=== PATIENT | male | born 1960 | race African-American/Black ===

== ENCOUNTER 2019-03-15 14:13 | Inpatient (IN) | payer OTHER ==
[2019-03-15 16:50] VITALS: BMI 23.1
--- NOTE | 2019-03-15 18:32 | HP ---
CIWA Score Nausea/Vomitin-Mild Nausea/No Vomiting Muscle Tremors: 4-Moderate,w/Arms Extend Anxiety: 3 Agitation: 2 Paroxysmal Sweats: 1-Minimal Palms Moist Orientation: 0-Oriented Tacttile Disturbances: 0-None Auditory Disturbances: 0-None Visual Disturbances: 0-None Headache: 1-Very Mild CIWA-Ar Total Score: 12 - Admission Criteria OASAS Guidelines: Admission for Medically Managed Detox: Requires at least one of the followin. CIWA greater than 12 2. Seizures within the past 24 hours 3. Delirium tremens within the past 24 hours 4. Hallucinations within the past 24 hours 5. Acute intervention needed for co occurring medical disorder 6. Acute intervention needed for co occurring psychiatric disorder 7. Severe withdrawal that cannot be handled at a lower level of care (continued vomiting, continued diarrhea, abnormal vital signs) requiring intravenous medication and/or fluids 8. Admission ROS [facility] Chief Complaint: 58 y/o M with PMH HTN, HLD, asthma, TASIA, who presents for alcohol detox. Allergies/Adverse Reactions: Allergies Allergy/AdvReac Type Severity Reaction Status Date / Time lisinopril Allergy Severe Swelling Verified 03/15/19 16:34 History of Present Illness: 58 y/o M with PMH HTN, HLD, asthma, TASIA, who presents for alcohol detox. Pt last drink was yesterday night. Had 3/4 a quart of Ming. States that he subsequently went to [facility] for detox, however since they did not have one, he was transferred to [facility] for alcohol detox. Usually drinks 1/2 bottle of ming a day. Longest sobriety 2 weeks. Never has had any legal action. Drinks alcohol because it makes him feel "happy and smooth." States that he has had a recent stressor, as his friend 2 weeks ago. Was in detox in the city 2 weeks prior for alcohol. However he started drinking soon after he left. Denies other ingestions or complaints. PMH: HTN, HLD, asthma, TASIA PsxH: denies meds: atenolol, lipitor, iron, folic acid, Mg, MTV, procardia, ranitidine, thiamine allergies: lisinopril - angioedema FH: lives at home with . used to work as a cook for kindergarten. Smokes 1 ppd x 40-50 yrs denies recreational drug use. alcohol use as above. Exam Limitations: No Limitations - Ebola screening Have you traveled outside of the country in the last 21 days: No Have you had contact with anyone from an Ebola affected area: No Do you have a fever: No - Review of Systems Constitutional: Weakness EENT: reports: Tinnitus Respiratory: reports: No Symptoms reported Cardiac: reports: No Symptoms Reported GI: reports: No Symptoms Reported : reports: No Symptoms Reported Musculoskeletal: reports: Back Pain Integumentary: reports: No Symptoms Reported Neuro: reports: Weakness Endocrine: reports: No Symptoms Reported Hematology: reports: No Symptoms Reported Psychiatric: reports: Orientated x3 Patient History - Patient Medical History Hx Anemia: Yes (on FERROUS SULFATE) Hx Asthma: Yes Hx Chronic Obstructive Pulmonary Disease (COPD): No Hx Cancer: No Hx Cardiac Disorders: No Hx Congestive Heart Failure: No Hx Hypertension: Yes (ON PROCARDIA, ATENOLOL) Hx Hypercholesterolemia: Yes (ON LIPITOR) Hx Pacemaker: No HX Cerebrovascular Accident: No Hx Seizures: No Hx Dementia: No Hx Diabetes: No Hx Gastrointestinal Disorders: No Hx Liver Disease: No Hx Genitourinary Disorders: No Hx Sexually Transmitted Disorders: No Hx Renal Disease (ESRD): No Hx Thyroid Disease: No Hx Human Immunodeficiency Virus (HIV): No (NEG IN PAST. pt does not recall year ) Hx Hepatitis C: No Hx Depression: No Hx Suicide Attempt: No Hx Bipolar Disorder: No Hx Schizophrenia: No - Patient Surgical History Past Surgical History: No Hx Neurologic Surgery: No Hx Cataract Extraction: No Hx Cardiac Surgery: No Hx Lung Surgery: No Hx Breast Surgery: No Hx Breast Biopsy: No Hx Abdominal Surgery: No Hx Appendectomy: No Hx Cholecystectomy: No Hx Genitourinary Surgery: No Hx Section: No Hx Orthopedic Surgery: No Hx Hysterectomy: No Anesthesia Reaction: No - PPD History Documented Results: Positive w/o proof PPD to be Administered?: No - Reproductive History Patient is a Female of Child Bearing Age (11 -55 yrs old): No - Smoking Cessation Smoking history: Current every day smoker Have you smoked in the past 12 months: Yes Aproximately how many cigarettes per day: 20 Hx Chewing Tobacco Use: No Initiated information on smoking cessation: Yes 'Breaking Loose' booklet given: 03/15/19 - Substance & Tx. History Hx Alcohol Use: Yes Hx Substance Use: Yes Substance Use Type: Alcohol Hx Substance Use Treatment: Yes (detox 2 weeks ago for alcohol in [facility]) - Substances abused Alcohol Substance route: Oral Frequency: Daily Amount used: 1/5 pint Age of first use: 14 Date of last use: 03/15/19 Family Disease History - Family Disease History Family History: Denies Admission Physical Exam [facility] - Vital Signs Vital Signs: Vital Signs - 24 hr 03/15/19 16:32 Temperature 99.2 F Pulse Rate 96 H Respiratory 18 Rate Blood Pressure 143/93 - Physical General Appearance: Yes: Within Normal Limits HEENTM: Yes: Within Normal Limits Respiratory: Yes: Lungs Clear, Normal Breath Sounds Neck: Yes: Supple Breast: Yes: Breast Exam Deferred Cardiology: Yes: Regular Rate, S1, S2 Abdominal: Yes: Non Tender, Soft Genitourinary: Yes: Within Normal Limits Back: Yes: Within Normal Limits Musculoskeletal: Yes: Within Normal Limits, full range of Motion Extremities: Yes: Normal Inspection Neurological: Yes: java consultant II-XII NML intact Integumentary: Yes: Within Normal Limits - Diagnostic (1) Alcohol withdrawal Current Visit: Yes Status: Acute (2) Hypertension Current Visit: Yes Status: Acute (3) Hyperlipidemia Current Visit: Yes Status: Acute (4) Asthma Current Visit: Yes Status: Acute (5) Dehydration Current Visit: Yes Status: Acute Cleared for Admission [facility] - Detox or Rehab [facility] Level of Care: Medically Supervised Detox Regimen/Protocol: Librium Breathalyzer - Breathalyzer Breathalyzer: 0 Urine Drug Screen - Test Device Lot number: [id number] Expiration date: 01/05/21 - Control Is test valid?: Yes - Results Drug screen NEGATIVE: No Urine drug screen results: MET-Methamphetamine, BZO-Benzodiazepines Inpatient Rehab Admission - Rehab Decision to Admit Inpatient rehab admission?: No
[2019-03-15] MEDS ORDERED: IBUPROFEN 400 MG TABLET (FP) PO PRN (18:38)
[2019-03-15] MEDS ORDERED: MAG HYDROX/AL HYDROX/SIMETH 30 ML UNIT-DOSE CUP PO PRN (18:38)
[2019-03-15] MEDS ORDERED: MENTHOL/PHENOL 1 EACH UD MM PRN (18:38)
[2019-03-15] MEDS ORDERED: ACETAMINOPHEN 325 MG TABLET (FP) PO PRN (18:38)
[2019-03-15] MEDS ORDERED: MAGNESIUM HYDROX 2400MG/30ML ORAL SUSPENSION 30 ML CUP PO PRN (18:38)
[2019-03-15] MEDS ORDERED: hydrOXYzine HCL 25 MG TABLET (FP) PO PRN (18:38)
[2019-03-15] MEDS: chlordiazePOXIDE HCL 25 MG CAPSULE PO PRN (20:22)
[2019-03-15] MEDS: ATENOLOL 50 MG TABLET (FP) PO SCH (20:22)
[2019-03-15] MEDS: NICOTINE POLACRILEX 2 MG GUM BUC PRN (20:39)
[2019-03-15] MEDS ORDERED: PATIENT'S OWN MEDICATION (NON-FORMULARY) (Ranitidine Hcl [Ranitidine Hcl] 300 MG) PO SCH (22:00)
[2019-03-15] MEDS: RANITIDINE HCL 150 MG TABLET (FP) PO SCH (22:09)
[2019-03-15] MEDS: ATORVASTATIN CA 20 MG TABLET (FP) PO SCH (22:09)
[2019-03-15] MEDS: chlordiazePOXIDE HCL 25 MG CAPSULE PO SCH (22:09)
[2019-03-15] MEDS: THIAMINE HCL 100 MG TABLET (FP) PO SCH (22:09)
[2019-03-15] MEDS: MELATONIN 5 MG TABLETS PO PRN (22:09)
[2019-03-16] MEDS: chlordiazePOXIDE HCL 25 MG CAPSULE PO SCH ×4 (06:02→22:04)
[2019-03-16] MEDS ORDERED: PATIENT'S OWN MEDICATION (NON-FORMULARY) (Ferrous Sulfate [Ferrous Sulfate] 325 MG) PO SCH (10:00)
[2019-03-16] MEDS ORDERED: PATIENT'S OWN MEDICATION (NON-FORMULARY) (Magnesium Oxide [Magnesium Oxide] 400 MG) PO SCH (10:00)
[2019-03-16] MEDS: NIFEdipine E.R 60 MG TABLET (UD) PO SCH (10:09)
[2019-03-16] MEDS: PRENATAL VITAMINS W/ FOLIC ACID TABLET (FP) PO SCH (10:09)
[2019-03-16] MEDS: MULTIVITAMINS (DAILY MVI) TABLET (FP) PO SCH (10:10)
[2019-03-16] MEDS: FOLIC ACID 1 MG TABLET (FP) PO SCH (10:10)
[2019-03-16] MEDS: FERROUS SO4 325 MG TABLET (FP) PO SCH (10:10)
[2019-03-16] MEDS: THIAMINE HCL 100 MG TABLET (FP) PO SCH ×2 (10:13→22:04)
--- NOTE | 2019-03-16 10:59 | PN ---
[facility] CIWA - CIWA Score Nausea/Vomitin-Mild Nausea/No Vomiting Muscle Tremors: 3 Anxiety: 2 Agitation: 2 Paroxysmal Sweats: 1-Minimal Palms Moist Orientation: 1-Uncertain about Date Tacttile Disturbances: 1-Very Mild Itch/Numbness Auditory Disturbances: 0-None Visual Disturbances: 0-None Headache: 1-Very Mild CIWA-Ar Total Score: 12 [facility] Progress Note (SOAP) Subjective: tremor tired low energy trouble in concentration headaches Objective: 03/16/19 11:00 Vital Signs Temperature 97.4 F L 03/16/19 09:18 Pulse Rate 65 03/16/19 09:18 Respiratory Rate 18 03/16/19 09:18 Blood Pressure 122/75 03/16/19 09:18 O2 Sat by Pulse Oximetry (%) 03/16/19 11:00 lab pending Assessment: 03/16/19 11:00 alcohol withdrawal sx Plan: continue alcohol detox
[2019-03-16] MEDS: MAGNESIUM OXIDE 400 MG TABLET (FP) PO SCH (11:27)
[2019-03-16] MEDS: ATENOLOL 50 MG TABLET (FP) PO SCH (11:27)
[2019-03-16 12:08] LABS: MCH 32.7 pg (25.7-33.7); MCHC 33.4 g/dl (32.0-35.9); MEAN CELL VOLUME 97.9 fl (80-96); PLATELET COUNT 146 K/MM3 (134-434); RBC 3.37 M/mm3 (4.00-5.60); WHITE BLOOD COUNT 4.3 K/mm3 (4.0-10.0)
[2019-03-16 12:52] LABS: ALBUMIN 2.6 g/dl (3.4-5.0); BILIRUBIN,TOTAL 0.8 mg/dL (0.2-1); CALCIUM 8.4 mg/dL (8.5-10.1); CREATININE 0.8 mg/dL (0.55-1.3); POTASSIUM 3.3 mmol/L (3.5-5.1); TOT PROT 5.3 g/dl (6.4-8.2)
--- NOTE | 2019-03-16 13:16 | PN ---
Teaching Attending Note Name of Resident: mAparo Baca ATTENDING PHYSICIAN STATEMENT I saw and evaluated the patient. I reviewed the resident's note and discussed the case with the resident. I agree with the resident's findings and plan as documented. SUBJECTIVE: 58 yo with h/o HTN, asthma requesting admission for alcohol detox. CIWA- 12. OBJECTIVE: Vital Signs - 24 hr 03/15/19 03/15/19 03/16/19 16:32 21:03 00:30 Temperature 99.2 F 97.9 F Pulse Rate 96 H 94 H Respiratory 18 18 18 Rate Blood Pressure 143/93 166/100 03/16/19 03/16/19 03/16/19 03:30 06:36 09:18 Temperature 98.5 F 97.4 F L Pulse Rate 71 65 Respiratory 19 18 18 Rate Blood Pressure 139/86 122/75 03/16/19 13:13 Temperature 98.1 F Pulse Rate 68 Respiratory 18 Rate Blood Pressure 163/103 H a and o X3, mild tremor ASSESSMENT AND PLAN: pt admitted for alcohol use disorder with librium.
[2019-03-16] MEDS ORDERED: POTASSIUM CHLORIDE TABS 20 MEQ TABLET.ER (FP) PO ONE (18:30)
[2019-03-16] MEDS: NICOTINE POLACRILEX 2 MG GUM BUC PRN (20:12)
[2019-03-16] MEDS: RANITIDINE HCL 150 MG TABLET (FP) PO SCH (22:04)
[2019-03-16] MEDS: POTASSIUM CHLORIDE ORAL LIQUID 20 MEQ/15 ML PO SCH (22:04)
[2019-03-16] MEDS: ATORVASTATIN CA 20 MG TABLET (FP) PO SCH (22:04)
[2019-03-16] MEDS: MELATONIN 5 MG TABLETS PO PRN (22:05)
[2019-03-17] MEDS: chlordiazePOXIDE HCL 25 MG CAPSULE PO SCH ×3 (05:22→21:24)
[2019-03-17] MEDS: MAGNESIUM OXIDE 400 MG TABLET (FP) PO SCH (10:26)
[2019-03-17] MEDS: POTASSIUM CHLORIDE ORAL LIQUID 20 MEQ/15 ML PO SCH ×4 (10:26→22:09)
[2019-03-17] MEDS: PRENATAL VITAMINS W/ FOLIC ACID TABLET (FP) PO SCH (10:26)
[2019-03-17] MEDS: ATENOLOL 50 MG TABLET (FP) PO SCH (10:26)
[2019-03-17] MEDS: FOLIC ACID 1 MG TABLET (FP) PO SCH (10:26)
[2019-03-17] MEDS: NIFEdipine E.R 60 MG TABLET (UD) PO SCH (10:26)
[2019-03-17] MEDS: FERROUS SO4 325 MG TABLET (FP) PO SCH (10:27)
[2019-03-17] MEDS: MULTIVITAMINS (DAILY MVI) TABLET (FP) PO SCH (10:30)
[2019-03-17] MEDS: THIAMINE HCL 100 MG TABLET (FP) PO SCH ×2 (10:30→21:23)
--- NOTE | 2019-03-17 10:54 | PN ---
[facility] CIWA - CIWA Score Nausea/Vomitin-Mild Nausea/No Vomiting Muscle Tremors: 2 Anxiety: 3 Agitation: 2 Paroxysmal Sweats: 1-Minimal Palms Moist Orientation: 1-Uncertain about Date Tacttile Disturbances: 1-Very Mild Itch/Numbness Auditory Disturbances: 0-None Visual Disturbances: 0-None Headache: 0-None Present CIWA-Ar Total Score: 11 S Progress Note (SOAP) Subjective: doing well today less tremor headaches low energy prefers stay in bed hesitate to discuss aftercare Objective: 03/17/19 10:56 Vital Signs Temperature 97.6 F 03/17/19 09:06 Pulse Rate 95 H 03/17/19 09:06 Respiratory Rate 20 03/17/19 09:06 Blood Pressure 121/90 03/17/19 09:06 O2 Sat by Pulse Oximetry (%) Laboratory Last Values WBC 4.3 K/mm3 (4.0-10.0) 03/16/19 08:30 RBC 3.37 M/mm3 (4.00-5.60) L 03/16/19 08:30 Hgb 11.0 GM/dL (11.7-16.9) L 03/16/19 08:30 Hct 33.0 % (35.4-49) L 03/16/19 08:30 MCV 97.9 fl (80-96) H 03/16/19 08:30 MCH 32.7 pg (25.7-33.7) 03/16/19 08:30 MCHC 33.4 g/dl (32.0-35.9) 03/16/19 08:30 RDW 19.0 % (11.9-15.9) H 03/16/19 08:30 Plt Count 146 K/MM3 (134-434) 03/16/19 08:30 MPV 8.0 fl (7.5-11.1) 03/16/19 08:30 Sodium 142 mmol/L (136-145) 03/16/19 08:30 Potassium 3.3 mmol/L (3.5-5.1) L 03/16/19 08:30 Chloride 105 mmol/L (98-107) 03/16/19 08:30 Carbon Dioxide 29 mmol/L (21-32) 03/16/19 08:30 Anion Gap 7 MMOL/L (8-16) L 03/16/19 08:30 BUN 3.0 mg/dL (7-18) L 03/16/19 08:30 Creatinine 0.8 mg/dL (0.55-1.3) 03/16/19 08:30 Est GFR (CKD-EPI)AfAm 114.93 03/16/19 08:30 Est GFR (CKD-EPI)NonAf 99.16 03/16/19 08:30 POC Glucometer 131 UNITS (80-120) 03/17/19 05:22 Random Glucose 213 mg/dL (74-106) H 03/16/19 08:30 Calcium 8.4 mg/dL (8.5-10.1) L 03/16/19 08:30 Total Bilirubin 0.8 mg/dL (0.2-1) 03/16/19 08:30 AST 190 U/L (15-37) H 03/16/19 08:30 ALT 42 U/L (13-61) 03/16/19 08:30 Alkaline Phosphatase 162 U/L (45-117) H 03/16/19 08:30 Total Protein 5.3 g/dl (6.4-8.2) L 03/16/19 08:30 Albumin 2.6 g/dl (3.4-5.0) L 03/16/19 08:30 RPR Titer Nonreactive (NONREACTIVE) 03/16/19 08:30 lab noted low K+ ast elevation K+ supplement repeat K+ and ast 03/17/19 10:58 Assessment: 03/17/19 10:58 alcohol withdrawal sx Plan: continue alcohol detox
[2019-03-17] MEDS: BISMUTH SUBSALICYLATE 524 MG/30 ML UD PO PRN ×2 (15:20→21:26)
[2019-03-17] MEDS: NICOTINE POLACRILEX 2 MG GUM BUC PRN ×2 (16:20→22:09)
[2019-03-17] MEDS: chlordiazePOXIDE HCL 25 MG CAPSULE PO PRN (16:43)
[2019-03-17] MEDS: ATORVASTATIN CA 20 MG TABLET (FP) PO SCH (21:23)
[2019-03-17] MEDS: RANITIDINE HCL 150 MG TABLET (FP) PO SCH (21:24)
[2019-03-17] MEDS: MELATONIN 5 MG TABLETS PO PRN (21:25)
[2019-03-18] MEDS ORDERED: chlordiazePOXIDE HCL 10 MG CAPSULE PO PRN
[2019-03-18] MEDS ORDERED: chlordiazePOXIDE HCL 10 MG CAPSULE PO SCH (05:00)
[2019-03-18] MEDS: BISMUTH SUBSALICYLATE 524 MG/30 ML UD PO PRN (05:58)
[2019-03-18 06:21] VITALS: BP 97/64; PULSE 73; TEMP 98.1
--- NOTE | 2019-03-18 13:32 | DS ---
[facility] Detox Discharge Summary Admission Date: 03/15/19 Discharge Date: 03/18/19 - History Present History: Alcohol Dependence Additional Comments: 58 years old male admitted on 03/15/19 for alcohol withdrawal sx none compliance with K+ supplement administration as well as chest x ray due to +PPD patient repeat stating that he was in the hospital x "weeks" prior to detox admission that "my potassium level too high" insists to leave the detox today that he prefers to return to his primary care provider for potassium and ast serum level patient untrust the blood result as well as pharmacotherapy regimen strong encourage the patient bring in medication list and lab report to primary care provider that positive ppd serum test request chest x ray (valid for one year) patient is alert denies suicidal ideation cardiac S1S2 pulmonary: clear lung bilaterally discuss with patient regarding alcohol related GI disturbances as well as liver enzyme elevation medical history of hypertension diabetes hyperlipidemia patient believes that he can control his alcohol drinking that self management is recovery strategy - Physical Exam Results Vital Signs: Vital Signs Temperature 98.1 F 03/18/19 06:21 Pulse Rate 73 03/18/19 06:21 Respiratory Rate 16 03/18/19 06:21 Blood Pressure 97/64 03/18/19 06:21 O2 Sat by Pulse Oximetry (%) Pertinent Admission Physical Exam Findings: alcohol withdrawal sx Laboratory Last Values WBC 4.3 K/mm3 (4.0-10.0) 03/16/19 08:30 RBC 3.37 M/mm3 (4.00-5.60) L 03/16/19 08:30 Hgb 11.0 GM/dL (11.7-16.9) L 03/16/19 08:30 Hct 33.0 % (35.4-49) L 03/16/19 08:30 MCV 97.9 fl (80-96) H 03/16/19 08:30 MCH 32.7 pg (25.7-33.7) 03/16/19 08:30 MCHC 33.4 g/dl (32.0-35.9) 03/16/19 08:30 RDW 19.0 % (11.9-15.9) H 03/16/19 08:30 Plt Count 146 K/MM3 (134-434) 03/16/19 08:30 MPV 8.0 fl (7.5-11.1) 03/16/19 08:30 Sodium 142 mmol/L (136-145) 03/16/19 08:30 Potassium 3.3 mmol/L (3.5-5.1) L 03/16/19 08:30 Chloride 105 mmol/L (98-107) 03/16/19 08:30 Carbon Dioxide 29 mmol/L (21-32) 03/16/19 08:30 Anion Gap 7 MMOL/L (8-16) L 03/16/19 08:30 BUN 3.0 mg/dL (7-18) L 03/16/19 08:30 Creatinine 0.8 mg/dL (0.55-1.3) 03/16/19 08:30 Est GFR (CKD-EPI)AfAm 114.93 03/16/19 08:30 Est GFR (CKD-EPI)NonAf 99.16 03/16/19 08:30 POC Glucometer 192 UNITS (80-120) 03/18/19 05:55 Random Glucose 213 mg/dL (74-106) H 03/16/19 08:30 Calcium 8.4 mg/dL (8.5-10.1) L 03/16/19 08:30 Total Bilirubin 0.8 mg/dL (0.2-1) 03/16/19 08:30 AST 190 U/L (15-37) H 03/16/19 08:30 ALT 42 U/L (13-61) 03/16/19 08:30 Alkaline Phosphatase 162 U/L (45-117) H 03/16/19 08:30 Total Protein 5.3 g/dl (6.4-8.2) L 03/16/19 08:30 Albumin 2.6 g/dl (3.4-5.0) L 03/16/19 08:30 RPR Titer Nonreactive (NONREACTIVE) 03/16/19 08:30 lab noted low K+ elevation liver enzyme patient prefers to return to primary care provider for K+ and liver enzyme monitoring - Treatment Hospital Course: Detox Protocol Followed, Responded well Patient has Accepted a Rehab Referral to: community support approach - Medication Discharge Medications: Ambulatory Orders Atenolol [Tenormin] 50 mg PO DAILY 03/15/19 Atorvastatin Ca [Lipitor] 20 mg PO HS 03/15/19 Ferrous Sulfate 325 mg PO DAILY 03/15/19 Folic Acid 1 mg PO DAILY 03/15/19 Magnesium Oxide 400 mg PO DAILY 03/15/19 Multivitamin [Multiple Vitamins] 1 each PO DAILY 03/15/19 Nifedipine ER [Procardia Xl -] 60 mg PO DAILY 03/15/19 Potassium Chloride 20 meq PO DAILY 03/15/19 Ranitidine HCl 300 mg PO HS 03/15/19 Thiamine HCl [Vitamin B1] 100 mg PO DAILY 03/15/19 - Diagnosis (1) GERD (gastroesophageal reflux disease) Status: Chronic Qualifiers: Esophagitis presence: without esophagitis Qualified Code(s): K21.9 - Gastro -esophageal reflux disease without esophagitis (2) Alcohol withdrawal Status: Acute Qualifiers: Complication of substance-induced condition: uncomplicated Qualified Code(s ): F10.230 - Alcohol dependence with withdrawal, uncomplicated (3) Asthma Status: Chronic Qualifiers: Asthma severity: mild Asthma persistence: intermittent Asthma complication type: with status asthmaticus Qualified Code(s): J45.22 - Mild intermittent asthma with status asthmaticus (4) Hyperlipidemia Status: Chronic Qualifiers: Hyperlipidemia type: moderate mixed hyperlipidemia not requiring statin therapy Qualified Code(s): E78.2 - Mixed hyperlipidemia (5) Hypertension Status: Chronic Qualifiers: Hypertension type: essential hypertension Qualified Code(s): I10 - Essential (primary) hypertension (6) Positive PPD Status: Resolved - AMA Did Patient Leave Against Medical Advice: Yes
[2019-03-19] MEDS ORDERED: chlordiazePOXIDE HCL 10 MG CAPSULE PO SCH (05:00)
--- NOTE | 2019-03-19 13:24 | EKG ---
Test Reason : Blood Pressure : / mmHG Vent. Rate : 087 BPM Atrial Rate : 087 BPM P-R Int : 158 ms QRS Dur : 090 ms QT Int : 380 ms P-R-T Axes : 066 018 -03 degrees QTc Int : 457 ms NORMAL SINUS RHYTHM NONSPECIFIC ST ABNORMALITY ABNORMAL ECG NO PREVIOUS ECGS AVAILABLE Confirmed by NEHEMIAH DEL VALLE MD ([id number]) on 03/19/2019 1:24:19 PM Referred By: Confirmed By:NEHEMIAH DEL VALLE MD
[2019-03-20] MEDS ORDERED: chlordiazePOXIDE HCL 10 MG CAPSULE PO ONE (05:00)
== END 2019-03-18 09:20 | disposition left against medical advice (07) | DRG 770 ==
LOC: YASAS 14:13 → EDSEX 19:21 → Y3N 19:21
PROVIDERS: ADMIT Surgery; ATTEND Surgery
PROC: HZ2ZZZZ Detoxification Services for Substance Abuse Treatment (ICD-10-PCS; principal; 2019-03-15)
DX: F10.230 Alcohol dependence with withdrawal, uncomplicated (principal); D50.9 Iron deficiency anemia, unspecified; J45.22 Mild intermittent asthma with status asthmaticus; E87.6 Hypokalemia; E78.5 Hyperlipidemia, unspecified; E11.9 Type 2 diabetes mellitus without complications; E86.0 Dehydration; I10 Essential (primary) hypertension; K21.9 Gastro-esophageal reflux disease without esophagitis; R76.11 Nonspecific reaction to tuberculin skin test without active tuberculosis
CPT/HCPCS: 36415; 80053; 82962; 85027; 86593; 93005; 93010

== ENCOUNTER 2020-11-06 10:38 | Inpatient (IN) | payer OTHER ==
[2020-11-06 11:43] VITALS: BMI 22.1
[2020-11-06] MEDS ORDERED: ACETAMINOPHEN 325 MG TABLET (FP) PO PRN ×2 (12:18)
[2020-11-06] MEDS ORDERED: BISMUTH SUBSALICYLATE 262 MG/15 ML BTL PO PRN (12:18)
[2020-11-06] MEDS ORDERED: NICOTINE POLACRILEX 2 MG GUM BUC PRN (12:18)
[2020-11-06] MEDS ORDERED: LORazepam 1 MG TABLET PO PRN (12:18)
[2020-11-06] MEDS ORDERED: METHOCARBAMOL 500 MG TABLET PO PRN (12:18)
[2020-11-06] MEDS ORDERED: IBUPROFEN 400 MG TABLET (FP) PO PRN (12:18)
[2020-11-06] MEDS ORDERED: MAG HYDROX/AL HYDROX/SIMETH 30 ML UNIT-DOSE CUP PO PRN (12:18)
[2020-11-06] MEDS ORDERED: MAGNESIUM HYDROX 2400MG/30ML ORAL SUSPENSION 30 ML CUP PO PRN (12:18)
[2020-11-06] MEDS ORDERED: MENTHOL/PHENOL 1 EACH UD MM PRN (12:18)
[2020-11-06] MEDS ORDERED: MAGNESIUM CITRATE 300 ML BOTTLE PO PRN (12:18)
[2020-11-06] MEDS ORDERED: ONDANSETRON *ODT* 4 MG TABLET SL PRN (12:18)
[2020-11-06] MEDS: PRENATAL VITAMINS W/ FOLIC ACID TABLET (FP) PO SCH (13:55)
[2020-11-06] MEDS: hydrOXYzine PAMOATE 25 MG CAPSULE (FP) PO SCH ×3 (13:58→22:22)
[2020-11-06] MEDS: NICOTINE 21 MG/24 HOURS TOPICAL PATCH TD SCH (13:58)
[2020-11-06] MEDS: ATENOLOL 50 MG TABLET (FP) PO SCH (14:02)
[2020-11-06] MEDS: NIFEdipine E.R 60 MG TABLET PO SCH (14:02)
[2020-11-06] MEDS: LORazepam 2 MG TABLET PO SCH ×2 (18:23→22:20)
[2020-11-06 18:28] LABS: HEMOGLOBIN 11.8 GM/dL (11.7-16.9); MCHC 33.8 g/dl (32.0-35.9); MEAN CELL VOLUME 103.6 fl (80-96); MEAN PLT VOLUME 9.1 fl (7.5-11.1); PLATELET COUNT 230 K/MM3 (134-434); RBC 3.38 M/mm3 (4.00-5.60); WHITE BLOOD COUNT 6.6 K/mm3 (4.0-10.0)
[2020-11-06 18:33] LABS: POTASSIUM 3.2 mmol/L (3.5-5.1)
[2020-11-06 18:38] LABS: ALBUMIN 2.2 g/dl (3.4-5.0); BLOOD UREA NITROGEN 4.9 mg/dL (7-18); CALCIUM 8.6 mg/dL (8.5-10.1)
[2020-11-06 18:43] LABS: BILIRUBIN,TOTAL 2.8 mg/dL (0.2-1); TOT PROT 6.9 g/dl (6.4-8.2)
[2020-11-06] MEDS ORDERED: MELATONIN 5 MG TABLETS PO SCH (22:00)
[2020-11-06] MEDS ORDERED: ATORVASTATIN CA 20 MG TABLET (FP) PO SCH (22:00)
[2020-11-06] MEDS ORDERED: THIAMINE HCL 100 MG TABLET (FP) PO SCH (22:00)
[2020-11-07] MEDS: LORazepam 2 MG TABLET PO SCH ×3 (05:08→18:02)
[2020-11-07] MEDS: hydrOXYzine PAMOATE 25 MG CAPSULE (FP) PO SCH ×2 (05:08→10:07)
[2020-11-07] MEDS: NIFEdipine E.R 60 MG TABLET PO SCH (10:07)
[2020-11-07] MEDS: NICOTINE 21 MG/24 HOURS TOPICAL PATCH TD SCH (10:07)
[2020-11-07] MEDS: PRENATAL VITAMINS W/ FOLIC ACID TABLET (FP) PO SCH (10:07)
[2020-11-07] MEDS: ATENOLOL 50 MG TABLET (FP) PO SCH (10:47)
[2020-11-07] MEDS ORDERED: POTASSIUM CHLORIDE ORAL LIQUID 20 MEQ/15 ML PO SCH (11:30)
[2020-11-07] MEDS ORDERED: hydrOXYzine PAMOATE 25 MG CAPSULE (FP) PO PRN (11:34)
[2020-11-07] MEDS ORDERED: PANTOPRAZOLE 20 MG TABLET PO SCH (11:45)
[2020-11-07 14:29] VITALS: BP 123/66; PULSE 61; TEMP 98.7
[2020-11-08] MEDS ORDERED: LORazepam 1 MG TABLET PO SCH (05:00)
[2020-11-09] MEDS ORDERED: LORazepam 0.5 MG TABLET PO PRN
[2020-11-09] MEDS ORDERED: LORazepam 0.5 MG TABLET PO SCH (05:00)
[2020-11-10] MEDS ORDERED: LORazepam 0.5 MG TABLET PO ONE (05:00)
== END 2020-11-07 18:30 | disposition home or self-care (01) | DRG 775 ==
LOC: YASAS 10:38 → Y6N 11:57
PROVIDERS: ADMIT Allergy & Immunology; ATTEND Allergy & Immunology
PROC: HZ2ZZZZ Detoxification Services for Substance Abuse Treatment (ICD-10-PCS; principal; 2020-11-06)
DX: F10.230 Alcohol dependence with withdrawal, uncomplicated (principal); F17.210 Nicotine dependence, cigarettes, uncomplicated; I10 Essential (primary) hypertension; J45.909 Unspecified asthma, uncomplicated; R74.8 Abnormal levels of other serum enzymes; R76.11 Nonspecific reaction to tuberculin skin test without active tuberculosis; R63.4 Abnormal weight loss; Z68.22 Body mass index [BMI] 22.0-22.9, adult; Z86.39 Personal history of other endocrine, nutritional and metabolic disease; Z88.8 Allergy status to other drugs, medicaments and biological substances
CPT/HCPCS: 36415; 71046-TC-FY; 80053; 82962; 83036; 85027; 86780; 93005; 93010; C9803; U0003